=== PATIENT | female | born 1960 | race Caucasian/White ===

== ENCOUNTER → 2024-05-03 10:18 | Outpatient (REF) | payer BC, SELFPAY | LOC: HWWDC 10:18 | PROVIDERS: ATTENDING PHYSICIAN Obstetrics & Gynecology | DX: Z12.31 Encounter for screening mammogram for malignant neoplasm of breast (principal) | CPT/HCPCS: 77063; 77067 ==

== ENCOUNTER → 2024-12-10 09:38 | Outpatient (REF) | payer OTHER, SELFPAY | LOC: EMG 09:38 | PROVIDERS: ATTENDING PHYSICIAN Pain Medicine Interventional Pain Medicine | DX: M54.12 Radiculopathy, cervical region (principal) | CPT/HCPCS: 95886; 95910 ==

== ENCOUNTER → 2024-12-13 10:21 | Outpatient (REF) | payer OTHER, SELFPAY ==
[2024-12-13 11:29] LABS: Hematocrit 36.2 % (37.0-47.0); Hemoglobin 12.2 g/dL (12.0-16.0); Mean Corp Hgb Conc. 33.7 g/dL (33.0-37.0); Mean Corpuscular Volume 93.1 fL (81.0-99.0); Nucleated Red Blood Cells % 0 %; Platelet Count 314 10^3/uL (130-400); Red Cell Dist. Width 12.3 % (11.5-14.5)
[2024-12-13 12:13] LABS: Blood Urea Nitrogen 9 mg/dl (7-17); Calcium 9.6 mg/dl (8.4-10.2); Carbon Dioxide 28 mmol/L (22-30); Chloride 103 mmol/L (98-107); Glucose 90 mg/dl (70-99); Potassium 5.0 mmol/L (3.5-5.1); Sodium 138 mmol/L (135-145); eGFR > 60.00
== END ==
LOC: REG 10:21
PROVIDERS: ATTENDING PHYSICIAN Orthopaedic Surgery Orthopaedic Surgery of the Spine
DX: Z01.818 Encounter for other preprocedural examination (principal); M48.02 Spinal stenosis, cervical region
CPT/HCPCS: 36415; 80048; 85025; 93005

== ENCOUNTER → 2025-02-19 08:20 | Outpatient (REF) | payer OTHER, SELFPAY ==
[2025-02-19 09:03] LABS: Hematocrit 34.2 % (37.0-47.0); Hemoglobin 11.2 g/dL (12.0-16.0); Mean Corp Hgb Conc. 32.7 g/dL (33.0-37.0); Mean Corpuscular Volume 93.2 fL (81.0-99.0); Nucleated Red Blood Cells % 0 %; Platelet Count 273 10^3/uL (130-400); Red Cell Dist. Width 11.8 % (11.5-14.5)
[2025-02-19 09:39] LABS: Blood Urea Nitrogen 9 mg/dl (7-17); Calcium 9.3 mg/dl (8.4-10.2); Carbon Dioxide 29 mmol/L (22-30); Chloride 102 mmol/L (98-107); Glucose 98 mg/dl (70-99); Potassium 4.5 mmol/L (3.5-5.1); Sodium 136 mmol/L (135-145); eGFR > 60.00
== END ==
LOC: REG 08:20
PROVIDERS: ATTENDING PHYSICIAN Orthopaedic Surgery Orthopaedic Surgery of the Spine
DX: Z01.818 Encounter for other preprocedural examination (principal)
CPT/HCPCS: 36415; 80048; 85025